=== PATIENT | male | born 1960 | race Caucasian/White ===

== ENCOUNTER 2022-11-09 15:59 | Inpatient (IN) | payer MEDICARE, MEDICAID ==
[~2022-11-09] VITALS: Ht 177.8 cm; Wt 150.0 kg
[~2022-11-09 15:59] MED LIST: ASPI81TA52 PO; CALC625T31 PO; MAGN200T5 PO; MULT-1085 PO; ZINC220T3 PO
[2022-11-09] MEDS ORDERED: CefTRIAXone 2gm/D5W 50ml BAG 50 ML IV ONE (19:15)
[2022-11-09 19:50] LABS: BASOPHILS # (AUTO) 0.1 X10'3 (0-0.2); BASOPHILS % (AUTO) 0.9 % (0-1); EOSINOPHILS # (AUTO) 0.3 X10'3 (0-0.9); EOSINOPHILS % (AUTO) 2.6 % (0-6); HEMATOCRIT 40.8 % (42.0-52.0); HEMOGLOBIN 13.3 g/dl (14.0-17.9); LYMPHOCYTES % (AUTO) 16.3 % (21-51); MEAN CORPUSCULAR HGB CONC 32.5 g/dL (33.0-36.5); MEAN CORPUSCULAR VOLUME 92.3 FL (78-98); MEAN PLATELET VOLUME 6.7 FL (7.4-10.4); MONOCYTES # (AUTO) 1.3 X10'3 (0-0.9); MONOCYTES % (AUTO) 10.2 % (2-12); NEUTROPHILS # (AUTO) 8.7 X10'3 (1.8-7.7); PLATELET COUNT 358 X10'3 (140-440); RED BLOOD COUNT 4.42 X10'6 (4.70-6.10); RED CELL DISTRIBUTION WIDTH 12.8 % (11.5-14.5); WHITE BLOOD COUNT 12.4 X10'3 (4.5-11.0)
[2022-11-09 20:04] LABS: ALANINE AMINOTRANSFERASE 43 U/L (12-78); ALBUMIN 3.4 G/DL (3.4-5.0); ALBUMIN/GLOBULIN RATIO 0.9 (1.1-1.5); ALKALINE PHOSPHATASE 132 IU/L (46-116); ANION GAP 10 (8-16); ASPARTATE AMINO TRANSFERASE 28 U/L (10-37); BILIRUBIN,TOTAL 1.1 MG/DL (0.1-1.0); BLOOD UREA NITROGEN 19 MG/DL (7-18); BUN/CREATININE RATIO 20.9 (5.4-32.0); CALCIUM 8.8 MG/DL (8.5-10.1); CHLORIDE 102 MMOL/L (99-107); CREATININE 0.91 MG/DL (0.60-1.10); GLUCOSE 109 MG/DL (70-104); MAGNESIUM 2.4 MG/DL (1.5-2.4); POTASSIUM 3.9 MMOL/L (3.5-5.1); SODIUM 139 MMOL/L (135-145); TOTAL CARBON DIOXIDE 26.9 MMOL/L (24-32); TOTAL PROTEIN 7.3 G/DL (6.4-8.2); eGFR 84 ML/MIN
[2022-11-09] MEDS ORDERED: VANCOMYCIN 1,500MG inj. 1,500 MG in normal saline 500ml IV soln 300 ML IV STA (22:12)
[2022-11-09] MEDS ORDERED: potassium Cl 40MEQ/1/2NS 520ml 520 ML IV PRN (22:25)
[2022-11-09] MEDS ORDERED: potassium Cl 20 mEq SR tablet PO PRN ×2 (22:25)
[2022-11-09] MEDS ORDERED: acetaminophen 325mg tablet PO PRN (22:25)
[2022-11-09] MEDS ORDERED: magnesium hydroxide 30ml (MOM) UD suspension PO PRN (22:25)
[2022-11-09] MEDS ORDERED: HYDROcodone/acetaminophen 5mg/325mg tablet PO PRN (22:25)
[2022-11-09] MEDS ORDERED: magnesium Cl slow-release 64mg tablet PO PRN (22:25)
[2022-11-09] MEDS ORDERED: magnesium 4gm in 100ml NS 100 ML IV PRN (22:25)
[2022-11-09] MEDS ORDERED: mag hydrox/Alum hydrox/simeth 30ml oral suspension PO PRN (22:25)
[2022-11-09] MEDS ORDERED: ondansetron/PF 4mg/2ml inj IV PRN (22:25)
[2022-11-10] MEDS ORDERED: ibuprofen tablet 400 MG TABLET PO ONE (01:40)
[2022-11-10 03:25] LABS: BASOPHILS # (AUTO) 0.1 X10'3 (0-0.2); BASOPHILS % (AUTO) 1.2 % (0-1); EOSINOPHILS # (AUTO) 0.3 X10'3 (0-0.9); EOSINOPHILS % (AUTO) 2.1 % (0-6); HEMATOCRIT 37.2 % (42.0-52.0); HEMOGLOBIN 12.7 g/dl (14.0-17.9); LYMPHOCYTES # (AUTO) 2.3 X10'3 (1.1-4.8); LYMPHOCYTES % (AUTO) 19.5 % (21-51); MEAN CORPUSCULAR HEMOGLOBIN 31.2 PG (27.0-31.0); MEAN CORPUSCULAR HGB CONC 34.2 g/dL (33.0-36.5); MEAN CORPUSCULAR VOLUME 91.2 FL (78-98); MEAN PLATELET VOLUME 6.5 FL (7.4-10.4); MONOCYTES % (AUTO) 8.2 % (2-12); NEUTROPHILS # (AUTO) 8.3 X10'3 (1.8-7.7); PLATELET COUNT 316 X10'3 (140-440); RED BLOOD COUNT 4.08 X10'6 (4.70-6.10); RED CELL DISTRIBUTION WIDTH 12.8 % (11.5-14.5)
[2022-11-10 03:37] LABS: ALANINE AMINOTRANSFERASE 40 U/L (12-78); ALBUMIN 3.1 G/DL (3.4-5.0); ALBUMIN/GLOBULIN RATIO 0.9 (1.1-1.5); ALKALINE PHOSPHATASE 118 IU/L (46-116); ANION GAP 8 (8-16); ASPARTATE AMINO TRANSFERASE 24 U/L (10-37); BLOOD UREA NITROGEN 19 MG/DL (7-18); BUN/CREATININE RATIO 24.1 (5.4-32.0); CALCIUM 8.7 MG/DL (8.5-10.1); CHLORIDE 104 MMOL/L (99-107); CREATININE 0.79 MG/DL (0.60-1.10); GLUCOSE 116 MG/DL (70-104); MAGNESIUM 2.4 MG/DL (1.5-2.4); SODIUM 137 MMOL/L (135-145); TOTAL CARBON DIOXIDE 25.3 MMOL/L (24-32); TOTAL PROTEIN 6.5 G/DL (6.4-8.2); eGFR > 90 ML/MIN
[2022-11-10] MEDS ORDERED: vancomycin/NS 1 GM ADD-VANTAGE 250 ML IV SCH (07:00)
[2022-11-10] MEDS ORDERED: vancomycin/NS 1 GM ADD-VANTAGE 250 ML X 1 DOSE IV SCH (08:00)
[2022-11-10] MEDS: K and/or MAG REPLACEMENT MC SCH ×2 (08:09→20:00)
[2022-11-10] MEDS: docusate sod 100mg capsule PO SCH ×2 (09:40→20:00)
[2022-11-10] MEDS: heparin, porcine 5000 units/ml vial SQ SCH ×2 (09:45→21:09)
[2022-11-10] MEDS: cefazolin/dext.iso 2gm/100ml 100 ML IV SCH ×3 (12:39→23:44)
[2022-11-10] MEDS: normal saline 1000ml 1,000 ML IV SCH ×2 (12:39→22:05)
[2022-11-10 15:30] VITALS: BP 139/58
[2022-11-10] MEDS ORDERED: SULF1TAB45 PO (17:22)
[2022-11-10] MEDS ORDERED: MAGN400C PO (17:23)
[2022-11-10] MEDS ORDERED: PSYL0.4C2 PO (17:23)
[2022-11-10 18:00] VITALS: BP 146/57
--- NOTE | 2022-11-10 18:31 | NUR ---
Report to December RN
[2022-11-10] MEDS: HYDROcodone/acetaminophen 10/325mg tab PO PRN (19:49)
[2022-11-10] MEDS ORDERED: CefTRIAXone/D5W-Rocephin 1gm 50 ML IV SCH (20:00)
[2022-11-10 22:00] VITALS: BP 144/73
[2022-11-10] MEDS ORDERED: VANCOMYCIN LEVEL IV ONE (22:30)
[2022-11-11] MEDS: HYDROcodone/acetaminophen 10/325mg tab PO PRN ×5 (01:06→19:49)
[2022-11-11 04:55] LABS: BASOPHILS # (AUTO) 0.1 X10'3 (0-0.2); BASOPHILS % (AUTO) 1.1 % (0-1); EOSINOPHILS # (AUTO) 0.2 X10'3 (0-0.9); EOSINOPHILS % (AUTO) 2.3 % (0-6); HEMATOCRIT 38.1 % (42.0-52.0); HEMOGLOBIN 12.6 g/dl (14.0-17.9); LYMPHOCYTES # (AUTO) 2.4 X10'3 (1.1-4.8); LYMPHOCYTES % (AUTO) 23.8 % (21-51); MEAN CORPUSCULAR HEMOGLOBIN 30.4 PG (27.0-31.0); MEAN CORPUSCULAR HGB CONC 33.1 g/dL (33.0-36.5); MEAN CORPUSCULAR VOLUME 91.7 FL (78-98); MEAN PLATELET VOLUME 6.5 FL (7.4-10.4); MONOCYTES # (AUTO) 0.8 X10'3 (0-0.9); MONOCYTES % (AUTO) 8.3 % (2-12); NEUTROPHILS # (AUTO) 6.5 X10'3 (1.8-7.7); NEUTROPHILS % (AUTO) 64.5 % (42-75); PLATELET COUNT 341 X10'3 (140-440); RED BLOOD COUNT 4.15 X10'6 (4.70-6.10); RED CELL DISTRIBUTION WIDTH 12.8 % (11.5-14.5)
[2022-11-11 05:20] LABS: ALANINE AMINOTRANSFERASE 33 U/L (12-78); ALBUMIN 2.9 G/DL (3.4-5.0); ALBUMIN/GLOBULIN RATIO 0.8 (1.1-1.5); ALKALINE PHOSPHATASE 123 IU/L (46-116); ANION GAP 5 (8-16); ASPARTATE AMINO TRANSFERASE 21 U/L (10-37); BILIRUBIN,TOTAL 0.8 MG/DL (0.1-1.0); BLOOD UREA NITROGEN 14 MG/DL (7-18); BUN/CREATININE RATIO 19.7 (5.4-32.0); CALCIUM 8.5 MG/DL (8.5-10.1); CHLORIDE 106 MMOL/L (99-107); CREATININE 0.71 MG/DL (0.60-1.10); GLUCOSE 116 MG/DL (70-104); MAGNESIUM 2.2 MG/DL (1.5-2.4); POTASSIUM 4.1 MMOL/L (3.5-5.1); SODIUM 137 MMOL/L (135-145); TOTAL CARBON DIOXIDE 25.7 MMOL/L (24-32); TOTAL PROTEIN 6.4 G/DL (6.4-8.2); eGFR > 90 ML/MIN
[2022-11-11] MEDS: normal saline 1000ml 1,000 ML IV SCH ×2 (05:31→19:58)
[2022-11-11 06:00] VITALS: BP 139/61
--- NOTE | 2022-11-11 06:56 | NUR ---
Patient in room [facility] 357. I have received report from Yessy RN and had the opportunity to ask questions and assume patient care.
--- NOTE | 2022-11-11 07:05 | NUR ---
Patient in room [facility] 357. I have received report from Yessy RN and had the opportunity to ask questions and assume patient care.
[2022-11-11] MEDS: aspirin 81mg, enteric-coated 1 TAB TABLET.DR PO SCH (08:23)
[2022-11-11] MEDS: multivitamins, therapeutics tablet PO SCH (08:23)
[2022-11-11] MEDS: docusate sod 100mg capsule PO SCH ×2 (08:23→19:51)
[2022-11-11] MEDS: heparin, porcine 5000 units/ml vial SQ SCH ×2 (08:24→19:51)
[2022-11-11] MEDS: zinc sulfate 220mg capsule PO SCH (08:30)
[2022-11-11] MEDS: K and/or MAG REPLACEMENT MC SCH ×2 (08:32→20:00)
[2022-11-11] MEDS: cefazolin/dext.iso 2gm/100ml 100 ML IV SCH ×2 (09:00→16:32)
[2022-11-11 10:43] VITALS: BP 136/70
--- NOTE | 2022-11-11 16:43 | NUR ---
wound dressing change with nurse Rita ALFORD. Casie gonsales
--- NOTE | 2022-11-11 17:41 | NUR ---
patient medicated x2 with Spur with good effect. seen by Dr burnett and DR Saenz, no new orders. I agree with charting of brannon BEACH.
[2022-11-11 18:00] VITALS: BP 147/77
[2022-11-11 22:00] VITALS: BP 152/64
[2022-11-12] MEDS: cefazolin/dext.iso 2gm/100ml 100 ML IV SCH ×2 (00:07→08:03)
[2022-11-12] MEDS: HYDROcodone/acetaminophen 10/325mg tab PO PRN ×3 (00:09→11:05)
--- NOTE | 2022-11-12 06:48 | NUR ---
Problems reprioritized. Patient report given, questions answered & plan of care reviewed with Emilie BEACH. Addendum: 11/12/22 at 0649 by Kerry Alberto RN Amended: Links added.
--- NOTE | 2022-11-12 07:10 | NUR ---
Patient in room [facility] 357. I have received report from loc ALFORD and had the opportunity to ask questions and assume patient care.
[2022-11-12] MEDS: heparin, porcine 5000 units/ml vial SQ SCH (08:22)
[2022-11-12] MEDS: multivitamins, therapeutics tablet PO SCH (08:23)
[2022-11-12] MEDS: aspirin 81mg, enteric-coated 1 TAB TABLET.DR PO SCH (08:23)
[2022-11-12] MEDS: docusate sod 100mg capsule PO SCH (08:23)
[2022-11-12] MEDS: zinc sulfate 220mg capsule PO SCH (08:23)
[2022-11-12 08:28] LABS: BASOPHILS # (AUTO) 0.1 X10'3 (0-0.2); BASOPHILS % (AUTO) 0.9 % (0-1); EOSINOPHILS # (AUTO) 0.3 X10'3 (0-0.9); EOSINOPHILS % (AUTO) 2.9 % (0-6); HEMATOCRIT 43.6 % (42.0-52.0); HEMOGLOBIN 14.7 g/dl (14.0-17.9); LYMPHOCYTES # (AUTO) 3.1 X10'3 (1.1-4.8); LYMPHOCYTES % (AUTO) 28.4 % (21-51); MEAN CORPUSCULAR HGB CONC 33.8 g/dL (33.0-36.5); MEAN CORPUSCULAR VOLUME 91.8 FL (78-98); MEAN PLATELET VOLUME 6.5 FL (7.4-10.4); MONOCYTES # (AUTO) 0.7 X10'3 (0-0.9); MONOCYTES % (AUTO) 6.8 % (2-12); NEUTROPHILS # (AUTO) 6.7 X10'3 (1.8-7.7); PLATELET COUNT 400 X10'3 (140-440); RED BLOOD COUNT 4.75 X10'6 (4.70-6.10); RED CELL DISTRIBUTION WIDTH 13.2 % (11.5-14.5)
[2022-11-12] MEDS: K and/or MAG REPLACEMENT MC SCH (08:28)
[2022-11-12 08:40] VITALS: BP 143/49
[2022-11-12 08:57] LABS: ALANINE AMINOTRANSFERASE 35 U/L (12-78); ALBUMIN 3.4 G/DL (3.4-5.0); ALBUMIN/GLOBULIN RATIO 0.8 (1.1-1.5); ALKALINE PHOSPHATASE 145 IU/L (46-116); ANION GAP 8 (8-16); ASPARTATE AMINO TRANSFERASE 32 U/L (10-37); BILIRUBIN,TOTAL 0.8 MG/DL (0.1-1.0); BLOOD UREA NITROGEN 17 MG/DL (7-18); BUN/CREATININE RATIO 21.8 (5.4-32.0); CALCIUM 8.8 MG/DL (8.5-10.1); CHLORIDE 102 MMOL/L (99-107); CREATININE 0.78 MG/DL (0.60-1.10); GLUCOSE 111 MG/DL (70-104); MAGNESIUM 2.1 MG/DL (1.5-2.4); POTASSIUM 4.3 MMOL/L (3.5-5.1); SODIUM 135 MMOL/L (135-145); TOTAL CARBON DIOXIDE 25.2 MMOL/L (24-32); TOTAL PROTEIN 7.5 G/DL (6.4-8.2); eGFR > 90 ML/MIN
[2022-11-12 10:00] VITALS: BP 113/74
[2022-11-12] MEDS: normal saline 1000ml 1,000 ML IV SCH (11:08)
--- NOTE | 2022-11-12 11:12 | NUR ---
PRESSURE ULCER EDUCATION: DEFINITION: A pressure ulcer is an area of skin that breaks down when you stay in one position too long. The constant pressure against the skin reduces the blood flow to that area and the affected tissue dies. CAUSES: "Being bedridden or in a wheelchair "Fragile skin "Having a chronic condition, such as diabetes or vascular disease "Inability to move certain parts of your body without assistance "Older age "Incontinence of urine or stool SYMPTOMS: "A reddened area that DOES NOT turn white when pressed on - this can be the beginning of a pressure ulcer "A blister, deep sore or a crater - these can be advanced pressure ulcers FIRST AID: "Relieve the pressure on this area "Keep the area clean and dry "Call your primary doctor if you see any of the above symptoms "DO NOT massage the area "DO NOT use a donut shaped or ring shaped pillow- these actually interfere with the blood flow and cause complications PREVENTION: "Check for pressure ulcers everyday "Change position at least every two hours to relieve pressure "Use items that help relieve pressure- pillows, sheepskin, foam padding, and powders. "Keep skin clean and dry "Eat healthy well balanced meals "Exercise daily IF YOU SEE ANY OF THESE SYMPTOMS WHILE IN THE HOSPITAL - TELL YOUR NURSE IMMEDIATELY. IF YOU SEE ANY OF THESE SYMPTOMS WHILE AT HOME OR HAVE ANY QUESTIONS OR CONCERNS ABOUT PRESSURE ULCERS - CALL YOUR PRIMARY DOCTOR IMMEDIATELY. Addendum: 11/12/22 at 1112 by Melissa Walker RN Amended: Links added.
--- NOTE | 2022-11-12 11:25 | NUR ---
at 1125 Dr. Sibley rounded on pt and recommends pt due to discharge today awaiting discharge orders.
[2022-11-12] MEDS ORDERED: CEPH-585 PO (12:42)
[2022-11-12] MEDS ORDERED: ASPI-1 PO (12:45)
[2022-11-12] MEDS ORDERED: HYDR-3972 PO (13:29)
--- NOTE | 2022-11-12 14:19 | NUR ---
DIRECTOR OF CONVENTION SERVICES documentation: I have reviewed and agree with all interventions, assessments performed and documented by Emilie Ly LVN.
--- NOTE | 2022-11-12 14:56 | NUR ---
Pt given discharge instructions and wound care instructions as well as how to make follow up appointment with Dr. Francesca Mason. Patients nephew picked him up PIV removed by RN student nurse taken to lobby via wheelchair safe in vehicle.
== END 2022-11-12 14:30 | disposition home or self-care (01) | DRG 603 ==
LOC: ER 16:00 → ED HOLD 22:28 → SUR 3N 11-10 09:20
PROVIDERS: ADMIT Internal Medicine; ATTEND Family Medicine
DX: L03.115 Cellulitis of right lower limb (principal); Z68.42 Body mass index [BMI] 45.0-49.9, adult; S80.821A Blister (nonthermal), right lower leg, initial encounter; X58.XXXA Exposure to other specified factors, initial encounter; Z96.653 Presence of artificial knee joint, bilateral; E66.9 Obesity, unspecified; Z79.82 Long term (current) use of aspirin; Z91.040 Latex allergy status; Z79.899 Other long term (current) drug therapy; Y93.89 Activity, other specified; Y92.89 Other specified places as the place of occurrence of the external cause; Y99.8 Other external cause status
CPT/HCPCS: 36415; 71045; 80053; 83605; 83735; 84145; 85025; 87040; 87081; 93971; 97161; 97530; 99285; A6212; A6213; A6223; A6258; A6446; A6449; G0378; J0690; J0696; J1644; J3370; J7030; J7040